=== PATIENT | female | born 1990 | race African-American/Black ===

== ENCOUNTER 2016-09-16 10:28 | Emergency (ER) | payer OTHER ==
[~2016-09-16] VITALS: Ht 170.2 cm; Wt 95.5 kg
[~2016-09-16 10:28] MED LIST: LORTA5 PO; TAMS0.4C67 PO; ZOFR4TAB3 SL
[2016-09-16 10:40] VITALS: BP 114/76; PULSE 89; RESP 16; TEMP 98.7; O2SAT 99
--- NOTE | 2016-09-16 10:53 | PD ---
HPI Chief Complaint: Pain: Acute or Chronic Time Seen by Provider: 10:45 Travel History International Travel<30 days: No Contact w/Intl Traveler<30days: No Traveled to known affect area: No History of Present Illness HPI This is a 26-year-old female who presents to the emergency department with 2 months of right breast pain, intermittent, throbbing, worse today which prompted her to come to the emergency department. She denies any associated fevers or chills and denies any discharge from her nipple. She has a 5-year- old child but otherwise hasn't been nursing recently. She doesn't have a primary care physician. PFSH Past Medical History Diminished Hearing: No Immunizations Current: Yes ?: Not LMP: 08/29/2016 : 1 Para: 1 Miscarriage: 0 : 0 Social History Alcohol Use: No Tobacco Use: No (never) Substance Use: No Allergies-Medications (Allergen,Severity, Reaction): Coded Allergies: No Known Allergies (Verified , 09/16/16) Reported Meds & Prescriptions Reported Meds & Active Scripts Active No Active Prescriptions or Reported Medications Review of Systems General / Constitutional: No: Fever, Chills Cardiovascular: No: Chest Pain or Discomfort, Palpitations Physical Exam Narrative GENERAL: Well-appearing, no acute distress, nontoxic SKIN: Warm and dry. HEAD: Atraumatic. Normocephalic. ENT: No nasal bleeding or discharge. Moist mucous membranes Breast: No obvious swelling, induration or erythema of the right breast. Fibrocystic changes appreciated in both breasts. No discharge from the nipple. No discrete mass appreciated. MUSCULOSKELETAL: No obvious deformities. No clubbing. No cyanosis. No edema. NEUROLOGICAL: Awake and alert. No obvious cranial nerve deficits. Motor grossly within normal limits. Normal speech. PSYCHIATRIC: Appropriate mood and affect; insight and judgment normal. Data Data Last Documented VS Vital Signs Date Time Temp Pulse Resp B/P Pulse Ox O2 Delivery O2 Flow Rate FiO2 09/16/16 10:40 98.7 89 16 114/76 99 MDM Medical Decision Making Medical Screen Exam Complete: Yes Emergency Medical Condition: Yes Differential Diagnosis Breast mass, breast abscess Narrative Course This is a 26-year-old female who presents to the emergency department with subacute breast pain. She has a benign exam. I think she requires outpatient follow-up. The breast navigator was consulted and I gave the patient referral to [facility]. Patient was discharged home. Diagnosis Primary Impression: Breast pain, right Patient Instructions: General Instructions Additional Instructions: Follow up with [facility] at: Follow up with: [facility] [address] [facility] [facility] [place] [address] Office Hours Thursday - 9:00 am - 5:30 pm Thursday 8:00 am - 12:00 pm Teen Tuesdays 4:00 - 6:30 pm Med/Other Pt SpecificInfo: No Change to Meds Scripts No Active Prescriptions or Reported Meds Disposition: DISCHARGE HOME Condition: Stable Ruthann Pacheco MD Sep 16, 2016 10:53
== END 2016-09-16 11:00 | disposition home or self-care (01) ==
LOC: PHEFT 10:28
DX: N64.4 Mastodynia (principal)
CPT/HCPCS: 99283

== ENCOUNTER 2017-11-10 14:45 | Emergency (ER) | payer OTHER ==
[~2017-11-10] VITALS: Ht 170.2 cm; Wt 100.7 kg
[2017-11-10 14:53] VITALS: BP 153/85; PULSE 82; RESP 16; TEMP 99; O2SAT 98
--- NOTE | 2017-11-10 15:51 | PD ---
HPI Chief Complaint: Back/ Neck Pain or Injury Time Seen by Provider: 15:40 Travel History International Travel<30 days: No Contact w/Intl Traveler<30days: No Traveled to known affect area: No History of Present Illness HPI 27-year-old female presents emergency department for evaluation of right low back and leg pain has been persistent for several days. Patient states that she describes the pain as throbbing, constant. Movement increases her pain, rest somewhat decreases her pain. Denies numbness or tingling. She has been using ibuprofen, Tylenol, and topical creams without significant relief. Denies excessive activity or inciting events. Denies fever, chills, loss of bowel or bladder function, saddle anesthesia, weakness, trauma. Says she has a history of right lower extremity pain but she does not have his pain in a while. Denies chronic medical issues medication use. She has no other complaints today. PFSH Past Medical History Diminished Hearing: No Immunizations Current: Yes Tetanus Vaccination: < 5 Years ?: Not LMP: 10/22/2017 : 1 Para: 1 Miscarriage: 0 : 0 Social History Alcohol Use: No Tobacco Use: No (never) Substance Use: No Allergies-Medications (Allergen,Severity, Reaction): Coded Allergies: No Known Allergies (Verified Adverse Reaction, Unknown, 11/10/17) Reported Meds & Prescriptions Reported Meds & Active Scripts Active No Active Prescriptions or Reported Medications Review of Systems Except as stated in HPI: all other systems reviewed are Neg Physical Exam Narrative GENERAL: Well-nourished, well-developed patient. SKIN: Focused skin assessment warm/dry. HEAD: Normocephalic. EYES: No scleral icterus. No injection or drainage. NECK: Supple, trachea midline. No JVD or lymphadenopathy. No midline tenderness CARDIOVASCULAR: Regular rate and rhythm without murmurs, gallops, or rubs. RESPIRATORY: Breath sounds equal bilaterally. No accessory muscle use. MUSCULOSKELETAL: No cyanosis, or edema. BACK: Nontender without obvious deformity. No CVA tenderness. No midline tenderness. Tenderness palpation to the middle of right glutes. No tenderness palpation to the paraspinous muscles. Neurovascularly intact lower extremities. Grade 5/5 strength. Data Data Last Documented VS Vital Signs Date Time Temp Pulse Resp B/P (MAP) Pulse Ox O2 Delivery O2 Flow Rate FiO2 11/10/17 14:53 99.0 82 16 153/99 (356) 38 [facility] Medical Decision Making Medical Screen Exam Complete: Yes Emergency Medical Condition: Yes Differential Diagnosis Muscle spasm, sciatica, piriformis syndrome, lumbago Narrative Course 27-year-old female presents emergency department for evaluation of right low back and leg pain has been persistent for several days. Patient states that she describes the pain as throbbing, constant. Movement increases her pain, rest somewhat decreases her pain. Denies numbness or tingling. She has been using ibuprofen, Tylenol, and topical creams without significant relief. Denies excessive activity or inciting events. Denies fever, chills, loss of bowel or bladder function, saddle anesthesia, weakness, trauma. Says she has a history of right lower extremity pain but she does not have his pain in a while. Denies chronic medical issues medication use. She has no other complaints today. Vital signs are stable. Physical exam findings consistent with piriformis syndrome. No red flag signs or symptoms. Patient to follow-up with her primary care physician for further evaluation and treatment. Advised to return for worsening or persistent symptoms. I did advise her that this pain may persist for an extended amount time due to the nature of this injury. Diagnosis Primary Impression: Piriformis syndrome Qualified Codes: G57.01 - Lesion of sciatic nerve, right lower limb Referrals: Primary Care Physician Additional Instructions: Perform light stretches of the lower back and legs, and alternate heat and ice packs. If you develop increased pain, weakness, fever, chills, or bowel or bladder issues, return to the ED for further treatment and evaluation. Follow up with your primary care physician in 2-3 days. You may continue Tylenol Motrin for your pain. Scripts No Active Prescriptions or Reported Meds Disposition: 01 DISCHARGE HOME Condition: Stable Alma Lawson Nov 10, 2017 15:51
[2017-11-10] MEDS ORDERED: ROBA500T PO (15:52)
[2017-11-10] MEDS ORDERED: predniSONE 20 MG TAB PO ONE (16:00)
== END 2017-11-10 16:22 | disposition home or self-care (01) ==
LOC: PHEFT 14:45
DX: G57.01 Lesion of sciatic nerve, right lower limb (principal)
CPT/HCPCS: 99283; J7512

== ENCOUNTER 2017-12-08 14:27 | Emergency (ER) | payer OTHER ==
[~2017-12-08] VITALS: Ht 170.2 cm; Wt 99.0 kg
[~2017-12-08 14:27] MED LIST changes: -LORTA5 PO; +ROBA500T PO; -TAMS0.4C67 PO; -ZOFR4TAB3 SL
[2017-12-08 14:37] VITALS: BP 138/70; PULSE 88; RESP 16; TEMP 98.4; O2SAT 100
--- NOTE | 2017-12-08 15:06 | PD ---
HPI Chief Complaint: Spinner Concrete Pipe Problem/Complaint Time Seen by Provider: 14:45 Travel History International Travel<30 days: No Contact w/Intl Traveler<30days: No Traveled to known affect area: No History of Present Illness HPI Patient is a 27-year-old female who presents the emergency department with a week's worth of history of vaginal irritation and brown discharge. Denies abdominal pain nausea vomiting diarrhea. States her last menstrual period was about a month ago, she states she does not think she is , she intermittently uses condoms with her longtime significant other but she states she only uses condoms during the climax. She denies any chest pain shortness of breath abdominal pain nausea vomiting. She states she has had STD in the past. [facility] Past Medical History Medical History: Denies Significant Hx Diminished Hearing: No Immunizations Current: Yes Influenza Vaccination: Yes ?: Not LMP: 10/21/17 : 1 Para: 1 Miscarriage: 0 : 0 Past Surgical History Abdominal Surgery: Yes (Hernia repair) Social History Alcohol Use: No Tobacco Use: No (never) Substance Use: No Allergies-Medications (Allergen,Severity, Reaction): Coded Allergies: No Known Allergies (Verified Adverse Reaction, Unknown, 12/08/17) Reported Meds & Prescriptions Reported Meds & Active Scripts Active Flagyl (Metronidazole) 500 Mg Tab 500 Mg PO BID 7 Days Review of Systems Except as stated in HPI: all other systems reviewed are Neg Physical Exam Narrative GENERAL: Well-developed well-nourished no obvious distress SKIN: Focused skin assessment warm/dry. HEAD: Atraumatic. Normocephalic. EYES: Pupils equal and round. No scleral icterus. No injection or drainage. ENT: No nasal bleeding or discharge. Mucous membranes pink and moist. NECK: Trachea midline. No JVD. CARDIOVASCULAR: Regular rate and rhythm. No murmur appreciated. RESPIRATORY: No accessory muscle use. Clear to auscultation. Breath sounds equal bilaterally. GASTROINTESTINAL: Abdomen soft, non-tender, nondistended. Hepatic and splenic margins not palpable. No rebound no percussive tenderness. GENITOURINARY: Exam performed with female nurse wool washer present all times, there is some scant discharge white with some green tinged, minimal dried blood seen in the vaginal vault, the cervix is fairly friable and irritated could be consistent with a strawberry cervix. No cervical motion tenderness no bimanual tenderness peer MUSCULOSKELETAL: No obvious deformities. No clubbing. No cyanosis. No edema. NEUROLOGICAL: Awake and alert. No obvious cranial nerve deficits. Motor grossly within normal limits. Normal speech. PSYCHIATRIC: Appropriate mood and affect; insight and judgment normal. Data Data Last Documented VS Vital Signs Date Time Temp Pulse Resp B/P (MAP) Pulse Ox O2 Delivery O2 Flow Rate FiO2 12/08/17 14:37 98.4 88 16 138/70 (92) 100 Orders Orders Urinalysis - C+S If Indicated (12/08/17 14:45) Ed Urine Pregnancytest Poc (12/08/17 14:45) Wet Prep Profile (12/08/17 14:45) Gc And Chlamydia Pcr (12/08/17 14:45) Urine Culture (12/08/17 15:00) Ceftriaxone Inj (Rocephin Inj) (12/08/17 16:00) Metronidazole (Flagyl) (12/08/17 16:00) Ondansetron Odt (Zofran Odt) (12/08/17 16:00) Azithromycin (Zithromax) (12/08/17 16:00) Ed Discharge Order (12/08/17 15:58) Ceftriaxone Inj (Rocephin Inj) (12/08/17 16:00) Labs Laboratory Tests Test 12/08/17 14:55 12/08/17 15:00 Clue Cells (Wet Prep) NONE SEEN Vaginal Trichomonas (Wet Prep) NONE SEEN Vaginal Yeast (Wet Prep) NONE SEEN Urine Collection Type VOIDED Urine Color YELLOW Urine Turbidity SL CLOUDY Urine pH 6.0 Urine Specific [place] 1.025 Urine Protein TRACE mg/dL Urine Glucose (UA) NEG mg/dL Urine Ketones NEG mg/dL Urine Occult Blood TRACE Urine Nitrite NEG Urine Bilirubin NEG Urine Urobilinogen 1.0 MG/DL Urine Leukocyte Esterase MOD Urine RBC 0-3 /hpf Urine WBC 50-99 /hpf Urine Squamous Epithelial Cells 6-8 /hpf Urine Bacteria MOD /hpf Microscopic Urinalysis Comment CULTURE INDICATED MDM Medical Decision Making Medical Screen Exam Complete: Yes Emergency Medical Condition: Yes Differential Diagnosis STD, cervical friability, trichomonas, gonorrhea, chlamydia, BV, CV. PID is excluded clinically. Narrative Course Patient room to the emergency department, she appears well in obvious distress, abdomen is benign, there is some cervical friability and possible strawberry cervix however wet prep did not reveal any trichomonads. Her discharge certainly is more in line with BV STD however the patient was offered empiric therapy for gonorrhea chlamydia and trichomonas and she is accepted. Discussed with her that she needs to use barrier contraceptive follow-up with the health department primary care physician or [facility] and definitely needs a Pap smear in the near future. She verbalized understanding and agreement. She is stable for discharge at this time Her UA was reviewed and does show significant pyuria however I think this is probably vaginal contamination she does have squamous epithelial cells as well. She has not had any dysuria. Diagnosis Primary Impression: Vaginal discharge Additional Instructions: We have tested you for gonorrhea and chlamydia today, if you have any concerns she may have been exposed to HIV hepatitis and syphilis need to follow-up with either an [facility] a primary care physician or the health department for further testing of these diseases. Recommend highly that she follow-up with Dr. Davis or your [facility] for Pap smear as soon as possible. Always use condoms, do not drink alcohol while taking Flagyl as you will become very nauseous. Med/Other Pt SpecificInfo: Prescription(s) given Scripts Metronidazole (Flagyl) 500 Mg Tab 500 MG PO BID for Infection for 7 Days, #14 TAB 0 Refills Prov: Bryn Barrera MD 12/08/17 Disposition: 01 DISCHARGE HOME Condition: Stable Bryn Barrera MD December 08, 2017 15:06
[2017-12-08 15:42] LABS: BILIRUBIN, URINE NEG (NEG); BLOOD, URINE TRACE (NEG); GLUCOSE,URINE NEG (NEG); KETONE, URINE NEG (NEG); NITRITE,URINE NEG (NEG); URINE COLOR YELLOW (YELLW/STRAW); URINE LEUKOCYTE ESTERASE MOD (NEG)
[2017-12-08 15:52] LABS: RBC, URINE 0-3 /hpf (0-3)
[2017-12-08 15:53] LABS: BACTERIA, URINE MOD /hpf
[2017-12-08] MEDS ORDERED: METR-1 PO (15:57)
[2017-12-08] MEDS ORDERED: AZITHROMYCIN 250 MG TAB PO ONE (16:00)
[2017-12-08] MEDS ORDERED: metroNIDAZOLE 500 MG TAB PO ONE (16:00)
[2017-12-08] MEDS ORDERED: cefTRIAXone 250 MG VIAL IM ONE (16:00)
[2017-12-08] MEDS ORDERED: ONDANSETRON ODT 4 MG TAB PO ONE (16:00)
[2017-12-08] MEDS ORDERED: cefTRIAXone INJ 1,000 MG in SODIUM CHLORIDE 0.9% INJ 100 ML IV ONE (16:00)
== END 2017-12-08 16:56 | disposition home or self-care (01) ==
LOC: PHED 14:27
DX: N89.8 Other specified noninflammatory disorders of vagina (principal)
CPT/HCPCS: 81001; 84703; 87086; 87210; 87491; 87591; 96372; 99284; J0696